=== PATIENT | male | born 1960 | race Caucasian/White ===

== ENCOUNTER 2020-09-03 06:18 | Observation (INO) | payer MEDICARE, MEDICAID ==
[~2020-09-03] VITALS: Ht 175.3 cm; Wt 82.6 kg
--- NOTE | ~2020-09-03 | OP ---
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 PROCEDURE PERFORMED: Right total hip arthroplasty utilizing the Biomet Taperloc system with the following components: 1. Size 57 G7 finned acetabular shell. 2. A 6.5 mm bone screw, lengths 25 and 30 mm. 3. A 40 mm high wall polyethylene liner. 4. Size 12 high offset Taperloc Microplasty femoral stem. 5. A 40 mm ceramic head with a standard neck adapter. SURGEON: Luis Enrique Mcmillan DO. PAPER MAKING MACHINE OPERATOR: Angelique Chamorro PA-C; Cruz Gallagher DO; and Wendy Darby DO. ANESTHESIA: General with nerve block. ESTIMATED BLOOD LOSS: 75 mL. SPECIMENS: Femoral head. COMPLICATIONS: None. DISPOSITION: Stable to PACU. ANTIBIOTICS: 2 grams IV Ancef preop. INDICATIONS: The patient is a 60-year-old male who we followed in clinic for quite some time regarding right hip pain. He has evidence of DJD and AVN. He continued to have pain despite extensive conservative efforts. Therefore, I recommend he undergo total hip arthroplasty. DESCRIPTION OF PROCEDURE: The patient was seen in the preoperative area where [address] [address] OPERATIVE REPORT Name: DEMETRIA CHOWDARY Room: [address] Oralia Tavera#: [id number] Admission: 10/01/20 Attend Phys: Luis Enrique Mcmillan DO Discharge: Date of : 60 Report #: [id number] consent was obtained. The operative site was marked. He was brought back to the operative suite and given the benefit of a general anesthetic. He was placed on a well-padded [place] table. Both lower extremities were well padded and placed in the boot and subsequently in the spars. Right lower extremity was then prepped and draped in normal sterile fashion. A surgical timeout was performed where the correct side, site and procedure were verified. Everyone present was in agreement. We utilized a standard anterior incision. Sharp dissection through skin. We utilized a Bovie to dissect through the subcutaneous fat. We next identified the fascial layer. A new knife was used to make a nacho incision. The remainder of the visualized fascia was released with bluntly scissors. We noted the interval between the sartorius and the tensor. We identified the superior and inferior neck as well as the branches of the circumflex vessels. These were treated with both Aquamantys and Bovie. We then placed a retractor appropriately around the proximal femur. We pretreated the capsule with the Aquamantys. We then performed a standard anterior capsulectomy. We then made our standard femoral neck cut approximately 1 cm proximal to the lesser trochanter. A napkin ring cut was created. All bone was removed. We placed our retractors appropriately around the acetabulum. The remainder of capsular as well as labral tissue was excised. We sequentially reamed up to the 55. We then placed the 56 mm shell in the appropriate abduction version and inclination under fluoroscopy. We then drilled, measured, and placed the appropriate length screws in the posterior superior quadrant. Manhole cover was placed followed by the high wall liner in the anterior superior position. We then turned our attention to the femur. We externally rotated to 125 degrees. We released down to the lesser trochanter. We placed retractors appropriately. We extended and adducted the leg fully. We then prepped the proximal femur with the box osteotome, rattail rasp followed by sequential broaching up to a size 12, which gave us good fit. We trialed with a high offset standard neck. The hip was reduced. X-rays confirmed appropriate leg lengths. Stability was checked which was excellent. We then dislocated the hip. We removed all trial components. Wound was thoroughly irrigated. We opened and impacted the final size 12 stem. It sat in a similar position. We therefore opened and impacted the 40 mm head with a -3 neck adapter. Hip was reduced and x-rays were obtained and saved to the PACS system. Wound was thoroughly irrigated again. Fascial layer was closed with #1 Stratafix in a running fashion. Subcutaneous tissue was closed with a 2-0 Monocryl in a simple inverted interrupted fashion and skin was reapproximated with a running 3-0 Stratafix suture. Skin glue was placed followed by a sterile Mepilex. The patient was awoken from anesthesia and transferred to PACU in stable condition. There were no complications. Needle, sponge counts correct x 2. Dr. Mcmillan was present for all critical aspects of the case. Luis Enrique Mcmillan, [place] RFP/[place] [address] OPERATIVE REPORT Name: DEMETRIA CHOWDARY Herman Room: [address] Liang#: [id number] Admission: 10/01/20 Attend Phys: Luis Enrique Mcmillan DO Discharge: Date of : 60 Report #: [id number] By: [id number] Enrique Mcmillan DO /lance
[2020-09-19] MEDS ORDERED: OXYCONTIN20 M1 PO ×2 (20:20→20:26)
[2020-09-19] MEDS ORDERED: CHILDREN'S ASPI81 M1 PO (20:27)
[2020-09-19] MEDS ORDERED: PERCOCET 7.5-31 EAC1 PO ×2 (20:27→20:43)
[2020-09-19] MEDS ORDERED: LISINOPRIL-HCT1 EAC1 PO (20:30)
[2020-09-19] MEDS ORDERED: ROSUVASTATIN CA10 MG PO (20:31)
[2020-09-19] MEDS ORDERED: FENOFIBRATE150 MG PO (20:32)
[2020-09-19] MEDS ORDERED: VASCEPA1 GM PO (20:33)
[2020-09-19] MEDS ORDERED: PREZCOBIX 8001 EACH PO (20:34)
[2020-09-19] MEDS ORDERED: PIFELTRO100 MG PO (20:34)
[2020-09-19] MEDS ORDERED: TIVICAY50 MG PO (20:35)
[2020-09-19] MEDS ORDERED: ZOLPIDEM TARTRA10 MG PO (20:36)
[2020-09-19] MEDS ORDERED: COLACE100 MG PO (20:36)
[2020-10-01 15:00] VITALS: BP 137/86
[2020-10-01 21:10] VITALS: BP 107/68
[2020-10-02] VITALS (9 sets, daily range): BP systolic 98–122; BP diastolic 55–75
[2020-10-02 04:39] LABS: HEMATOCRIT 32.4 % (42.0-52.0); HEMOGLOBIN 11.4 gm/dL (14.0-18.0)
--- NOTE | 2020-10-02 05:58 | NUR ---
PATIENT HAS RESTED WELL THROUGHOUT MOST OF THE NIGHT. VSS ON 3L 02 VIA NASAL CANNULA. MEDICATIONS GIVEN ORDERED AND CHARTED. PATIENT USING BEDSIDE URINAL DURING THE NIGHT. DRESSING TO RIGHT HIP IS C/D/I, DELMY HOSE AND SCD'S IN PLACE. IV IN LEFT FOREARM-SL. PATIENT DRINING FLUIDS ORALLY. FALL PRECAUTIONS IN PLACE AND HOURLY ROUNDS MADE. WILL CONTINUE WITH PLAN OF CARE AND NURSING TO MONITOR.
[2020-10-02] MEDS ORDERED: ELIQUIS5 MG PO (07:43)
--- NOTE | 2020-10-02 11:38 | NUR ---
THIS NURSE AGREES WITH ASSESSMENT
--- NOTE | 2020-10-02 14:07 | NUR ---
Pt is A&O. Resides at home alone, on his Pt's land, parents can assist at dc if needed. Independent. Pt has a walker and cane that he can use if needed. No o2. Hx of HH. Hx of SNF. Goal is home at dc with HH, CM faxed referral to [facility]. Anticipate dc either later today or tomorrow pending therapies. CM contacted [facility] in [place] to check the cost of Pt's Eliquis prescription, per pharmacist, MCR system is down and pharmacist will call CM back once the sx is back up with the cost. [facility] p:[phone]
--- NOTE | 2020-10-02 17:15 | NUR ---
PATIENT RESTING IN BED, WATCHING TV. INCISION TO RIGHT HIP, UNABLE TO ASSESS DUE TO DRESSING. DRESSING C/D/I. ICE PACK TO SITE NEEDED. P.T. WORKED WITH PATIENT TODAY, TOLERATED WITHOUT DIFFICULTIES. C/O PAIN/DISCOMFORT TO RIGHT HIP. PAIN MEDICATIONS GIVEN ORDERED. DELMY HOSE INPLACE TO LEGS, BILATERALLY. SCD'S TO FEET, BILATERALLY, INFLATING/DEFLATING. IV TO LEFT FOREARM, 1/2 NORMAL SALINE INFUSING @75. DRESSING C/D/I. ALL QUESTIONS AND CONCERS ADDRESSED.
[2020-10-03 04:41] LABS: HEMOGLOBIN 10.7 gm/dL (14.0-18.0)
--- NOTE | 2020-10-03 05:10 | NUR ---
PATIENT ALERT AND ORIENTED, STANDBY ASSIST, ROOM AIR. HE IS AMBULATING WELL WITH WALKER TO RESTROOM. HE DID TAKE HIS HIV MEDS HE DOES AT HOME. ASSESSED FOR PAIN THIS MORNING, HE DID NOT REQUEST ANY PAIN MEDS AT THIS TIME (0430) RECEIVED FLUIDS AND ALL OTHER SCHEDULED MEDS.
[2020-10-03 08:00] VITALS: BP 96/53
[2020-10-03 09:34] VITALS: BP 98/55
[2020-10-03 10:06] VITALS: BP 98/55
--- NOTE | 2020-10-03 11:17 | NUR ---
PATIENT DISCHARGED AT THIS TIME VIA WHEELCHAIR, ACCOMPANIED BY NURSE, TO PRIVATE VEHICLE. IV DC'D, SITE COVERED WITH COTTON BALL AND BANDAID, PATIENT TOLERATED WITHOUT DIFFICULTIES. INCISION TO RIGHT HIP, UNABLE TO ASSESS DUE TO DRESSING. DRESSING C/D/I. DISCHARGE INSTRUCTIONS REVIEWED, PATIENT ACKNOWLEDGED UNDERSTANDING. ALL QUESTIONS AND CONCERNS ADDRESSED.
--- NOTE | 2020-10-03 11:43 | NUR ---
Pt discharged to home today with [facility]. FWW provided by [facility]. CM contacted pharmacy, [facility] cost is $0
--- NOTE | 2020-10-05 14:11 | PATH ---
[address] [address] PATHOLOGY RPT PROCEDURE Name: BALAJI REYES Room: [address] Oralia M.RRoopa#: [id number] Admission: 10/01/20 Date of : 60 Discharge: 10/03/20 Report #: [id number] Path Case #: [id number] [facility] Accession Number: [id number] . 01 Material submitted: . femur - RIGHT FEMORAL HEAD. Modifiers: head, right . 01 Clinical history: . RIGHT FEMORAL HEAD HX AVASCULAR NECROSIS RIGHT HIP MICRO AND MACRO STUDIES . 02 Diagnosis: Right femoral head: - Benign femoral head/neck tissues including hematopoietic elements with avascular necrosis and degenerative changes. (LASHONDA:kathleen; 10/04/2020) MBR 10/04/2020 1558 Local . 02 Electronically signed: . Maurice Morales MD, Pathologist NPI- [id number] . 01 Gross description: . The specimen is received in formalin, labeled "Balaji Reyes, right femoral bone " and received as femoral neck and femoral head that when reapproximated measures 6 x 5.5 x 5 cm. The specimen is fairly symmetrical with a smooth articular surface scattered with areas where detachment of the cartilage from the underlying bone is noted. The cut surfaces are red-brown to greenwood-yellow without obvious lesions. 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 02 Pathologist provided ICD-10: Z03.89 . 02 CPT . 950685, 079226 Specimen Comment: A courtesy copy of this report has been sent to [phone] Specimen Comment: Report sent to Performed at: [address], [place] [id number] MD Jose Raul Bustamante MD Phone: [phone] Performed at: [address] [place] [address] [place], [place] [id number] MD Maurice Morales MD Phone: [phone]
== END 2020-10-03 11:29 | disposition home or self-care (01) ==
LOC: M.PRE → M.TBA 10-01 13:35 → M.ORTHSURG 10-01 13:35
PROVIDERS: ADMIT Internal Medicine; ATTEND Orthopaedic Surgery
DX: M16.11 Unilateral primary osteoarthritis, right hip (principal); B20 Human immunodeficiency virus [HIV] disease; Z88.5 Allergy status to narcotic agent; Z79.899 Other long term (current) drug therapy; Z79.82 Long term (current) use of aspirin; Z98.890 Other specified postprocedural states

== ENCOUNTER → 2020-09-25 | Outpatient (CLI) | payer MEDICARE, MEDICAID ==
[~2020-09-25] MED LIST: CHILDREN'S ASPI81 M1 PO; COLACE100 MG PO; FENOFIBRATE150 MG PO; LISINOPRIL-HCT1 EAC1 PO; OXYCONTIN20 M1 PO; PERCOCET 7.5-31 EAC1 PO; PIFELTRO100 MG PO; PREZCOBIX 8001 EACH PO; ROSUVASTATIN CA10 MG PO; TIVICAY50 MG PO; VASCEPA1 GM PO; ZOLPIDEM TARTRA10 MG PO
[2020-09-25 10:24] LABS: ABSOLUTE EOSINOPHILS 0.4 thou/uL (0.0-0.7); ABSOLUTE LYMPHOCYTES 2.7 thou/uL (0.8-5.3); ABSOLUTE MONOCYTES 0.4 thou/uL (0.0-1.2); ABSOLUTE NEUTROPHILS 2.6 thou/uL (1.6-8.1); BASOPHILS 0.4 %; HEMATOCRIT 38.6 % (42.0-52.0); HEMOGLOBIN 13.2 gm/dL (14.0-18.0); LYMPHOCYTES 44.1 %; MCH 31.8 pg (26.0-34.0); MCHC 34.2 g/dL (28.0-37.0); MCV 92.8 fL (80.0-100.0); MONOCYTES 7.2 %; MPV 6.7 fl. (7.2-11.1); NUCLEATED RBCS 0 /100WBC; PLATELET COUNT* 284 thou/uL (150-400); POLYS 42.3 %; RBC 4.16 mil/uL (4.50-6.00); RDW-CV 14.3 % (10.5-14.5); WBC 6.1 thou/uL (4.0-11.0)
[2020-09-25 10:33] LABS: PROTIME 10.5 Seconds (9.20-11.50)
[2020-09-25 10:47] LABS: ALBUMIN 4.1 g/dL (3.4-5.0); CALCIUM 9.5 mg/dL (8.5-10.1); POTASSIUM 4.3 mmol/L (3.5-5.1); TOTAL BILIRUBIN 0.4 mg/dL (<0.1-1.0); TOTAL PROTEIN 7.1 g/dL (6.4-8.2)
--- NOTE | 2020-09-25 11:25 | EKG ---
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
[2020-09-25 11:32] LABS: ESR (SEDRATE) 5 mm/hr (0-20)
== END ==
LOC: M.LAB 05:51
PROVIDERS: ATTEND Orthopaedic Surgery
DX: Z01.812 Encounter for preprocedural laboratory examination (principal); Z20.822 Contact with and (suspected) exposure to COVID-19; M16.11 Unilateral primary osteoarthritis, right hip; I49.9 Cardiac arrhythmia, unspecified